=== PATIENT | female | born 1975 | race Two or more races ===

== ENCOUNTER 2024-01-04 22:31 | Inpatient (IN) | payer MEDICAID, OTHER ==
[~2024-01-04] VITALS: Ht 160 cm; Wt 143.1 kg
--- NOTE | 2024-01-04 22:53 | ED.PDOC ---
History of Present Illness HPI Comments 48-year-old female came to ER due to dizziness. Patient denies any medical problems. States since 8:00 p.m. she has been experiencing sudden onset dizziness, with blurring of vision. Denies any spinning sensation. States dizziness persisted now associated with anxiety, chills, neck and upper back pains. 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 Family History Family History: Reviewed,noncontributory to illness Social History Smoker: Non-Smoker Alcohol: Denies ETOH Use Drugs: Denies Drug Use Lives In: Home Constitutional: reports: chills; denies: diaphoresis, fatigue, fever, malaise, sweats, weakness, others EENTM: denies: blurred vision, double vision, ear bleeding, ear discharge, ear drainage, ear pain, ear ringing, eye pain, eye redness, hearing loss, mouth pain, mouth swelling, nasal discharge, nose bleeding, nose congestion, nose pain, photophobia, tearing, throat pain, throat swelling, voice changes, others Respiratory: denies: cough, hemoptysis, orthopnea, SOB at rest, shortness of breath, SOB with excertion, stridor, wheezing, others Cardiovascular: denies: chest pain, dizzy spells, diaphoresis, Dyspnea on exertion, edema, irregular heart beat, left arm pain, lightheadedness, palpitations, PND, syncope, others Gastrointestinal: denies: abdomen distended, abdominal pain, blood streaked bowels, constipated, diarrhea, dysphagia, difficulty swallowing, hematemesis, melena, nausea, poor appetite, poor fluid intake, rectal bleeding, rectal pain, vomiting, others Genitourinary: denies: abnormal vagina bleeding, burning, dyspareunia, dysuria, flank pain, frequency, hematuria, incontinence, pain, , vagina discharg e, urgency, others Neurological: reports: dizziness; denies: fainting, headache, left sided numbness, left sided weakness, numbness, paresthesia, pre-existing deficit, right sided numbness, right sided weakness, seizure, speech problems, tingling, tremors, weakness, others Musculoskeletal: reports: back pain, neck pain; denies: gout, joint pain, joint swelling, muscle pain, muscle stiffness, others Integumetry: denies: bruises, change in color, change in hair/nails, dryness, laceration, lesions, lumps, rash, wounds, others Allergic/Immunocompromised: denies: Difficulty Healing, Frequent Infections, Hives, Itching, others Hematologic/Lymphatic: denies: anemia, blood clots, easy bleeding, easy bruising, swollen glands, others Endocrine: denies: excessive hunger, excessive sweating, excessive thirst, excessive urination, flushing, intolerance to cold, intolerance to heat, unexplained weight gain, unexplained weight loss, others Psychiatric: reports: anxiety; denies: bipolar disorder, depression, hopeless, panic disorder, schizophrenia, sleepless, suicidal, others Physical Exam General Appearance: No Apparent Distress, Normal HEENT: Normal ENT Inspection, Pharynx Normal, TMs Normal Neck: Full Range of Motion, Non-Tender, Normal, Normal Inspection Respiratory: Chest Non-Tender, Lungs Clear, No Accessory Muscle Use, No Respiratory Distress, Normal Breath Sounds Cardiovascular: No Edema, No JVD, No Murmur, No Gallop, Normal Peripheral Pulses, Regular Rate/Rhythm Breast Exam: Deferred Gastrointestinal: No Organomegaly, Non Tender, No Pulsatile Mass, Normal Bowel Sounds, Soft Genitalia: Deferred Pelvic: Deferred Rectal: Deferred Extremities: No calf tenderness, Normal capillary refill, Normal inspection, Normal range of motion, Non-tender, No pedal edema Musculoskeletal : Apperance: Normal Neurologic: 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 Was a procedure done?: No Differential Dx Considerations may include: Anemia, electrolyte imbalance, vertigo X-Ray, Labs, Meds, VS Vital Signs Date Time Temp Pulse Resp B/P (MAP) Pulse Ox O2 Delivery O2 Flow Rate FiO2 01/05/24 00:05 91 17 97 Room Air* 0 21 01/05/24 00:00 98.8 91 17 127/77 (94) 97 98.8 01/04/24 23:56 94 19 134/84 (101) 98 01/04/24 22:48 107 01/04/24 22:39 98.3 110 18 163/74 (103) 99 Lab Test 01/05/24 00:32 01/04/24 23:48 01/04/24 22:43 Range/Units Troponin I High Sensitivity < 3 L < 3 L </=34 ng/L White Blood Count 11.5 H 4.4-10.8 10^3/uL Red Blood Count 4.48 4.0-5.20 10^6/uL Hemoglobin 14.6 12.2-16.2 g/dL Hematocrit 43.7 36.0-46.0 % Mean Corpuscular Volume 97.7 80.0-100.0 fL Mean Corpuscular Hemoglobin 32.7 H 28.0-32.0 pg Mean Corpuscular Hemoglobin Concent 33.4 32.0-36.0 g/dL Red Cell Distribution Width 13.1 11.8-14.3 % Platelet Count 236 140-450 10^3/uL Mean Platelet Volume 7.9 6.9-10.8 fL Neutrophils (%) (Auto) 80.4 H 37.0-80.0 % Lymphocytes (%) (Auto) 15.0 10.0-50.0 % Monocytes (%) (Auto) 3.7 0.0-12.0 % Eosinophils (%) (Auto) 0.7 0.0-7.0 % Basophils (%) (Auto) 0.2 0.0-2.0 % Neutrophils # (Auto) 9.2 H 1.6-8.6 10 ^3/uL Lymphocytes # (Auto) 1.7 0.4-5.4 10 ^3/uL Monocytes # (Auto) 0.4 0-1.3 10 ^3/uL Eosinophils # (Auto) 0.1 0-0.8 10 ^3/uL Basophils # (Auto) 0 0-0.2 10 ^3/uL Nucleated Red Blood Cells 0.1 % Sodium Level 135 L 136-145 mmol/L Potassium Level 4.1 3.5-5.1 mmol/L Chloride Level 105 98-107 mmol/L Carbon Dioxide Level 28 20-31 mmol/L Anion Gap 2 L 5-15 Blood Urea Nitrogen 9 9-23 mg/dL Creatinine 0.64 0.550-1.02 mg/dL Glomerular Filtration Rate Calc 110 >90 mL/min BUN/Creatinine Ratio 14.1 10.0-20.0 Serum Glucose 141 H 74-106 mg/dL Calcium Level 10.1 8.7-10.4 mg/dL POC Glucose 133 H 70-106 mg/dl XY CHEST TWO VIEWS ROUTINE FINDINGS: Lines and Tubes: None Lungs: No focal consolidation. Pleura: No effusion. No pneumothorax. Cardiomediastinal contours: Unremarkable Bones: No acute osseous abnormality. IMPRESSION: No acute cardiopulmonary disease. EXAM: CT HEAD WITHOUT CONTRAST FINDINGS: There is no evidence of acute intracranial hemorrhage, extra-axial collection, mass effect, midline shift, herniation or hydrocephalus. The ventricles, sulci and cisterns are age appropriate. The mckenna-white differentiation is intact. Patchy periventricular and subcortical white matter hypoattenuation is nonspecific but may be related to small vessel ischemic disease. The visualized paranasal sinuses and mastoid air cells are clear. The surrounding soft tissues and osseous structures are unremarkable. IMPRESSION: No acute intracranial abnormality. Time of 1ST Reevaluation: 22:50 Reevaluation 1ST: Unchanged Patient Education/Counseling: Diagnosis, Treatment Family Education/Counseling: No Family Present Departure 1 Departure Time of Disposition: 01:51 (Patient presented with worsening dizziness today and should be admitted. Data: 1. I ordered and reviewed the result of at least 3 labs including a CBC, BMP, and troponin. 2. I independently interpreted the following tests: EKG which shows a normal sinus _ and a chest x-ray which shows benign chest and a CT head which shows benign had.Risk:This patient has a high risk of morbidity due to further diagnostic testing or treatment and may suffer from an acute cardiac, neurologic, or infectious disorder. Rationale: Patient should be admitted to the hospital for further management.) Impression: Primary Impression: Dizziness Disposition: 09 ADMITTED INPATIENT Admit to: Med Surg Condition: Serious Critical Care Note Critical Care Time?: No Stability Stability form required: No Heart Score Heart Score: Heart Score Response (Comments) Value History N/A 0 EKG N/A 0 Age N/A 0 Risk Factors N/A 0 Troponin N/A 0 Total 0 I personally scribed for CONNIE LYNN MD ([email or web address]) on 01/04/24 at 22:53. Electronically submitted by Ismael Stubbs ([facility]). I personally scribed for CONNIE LYNN MD ([facility]) on 01/04/24 at 23:27. Electronically submitted by Ismael Stubbs ([facility]). I personally scribed for CONNIE LYNN MD ([facility]) on 01/04/24 at 23:28. Electronically submitted by Ismael Stubbs ([facility]). CONNIE LYNN MD Jan 04, 2024 22:53
--- NOTE | 2024-01-04 23:16 | DVH ---
XY CHEST TWO VIEWS ROUTINE CLINICAL HISTORY: near syncope COMPARISON: None TECHNIQUE: Frontal and lateral view of the chest was obtained FINDINGS: Lines and Tubes: None Lungs: No focal consolidation. Pleura: No effusion. No pneumothorax. Cardiomediastinal contours: Unremarkable Bones: No acute osseous abnormality. IMPRESSION: No acute cardiopulmonary disease.
--- NOTE | 2024-01-04 23:22 | DVH ---
EXAM: CT HEAD WITHOUT CONTRAST INDICATION: near syncope TECHNIQUE: CT of the head without intravenous contrast. Radiation Dose : 1. Head: CT Dose: CTDI volume is 61 mGy. Dose-length product is 1209 mGy*cm The dose indicators for CT are the volume Computed Tomography (CT) Dose Index (CTDIvol) and the Dose Length Product (DLP), and are measured in units of mGy and mGy-cm, respectively. These indicators are not patient dose, but values generated from the CT scanner acquisition factors. The report includes radiation exposure data for exposures received during this examination. COMPARISON: None FINDINGS: There is no evidence of acute intracranial hemorrhage, extra-axial collection, mass effect, midline s hift, herniation or hydrocephalus. The ventricles, sulci and cisterns are age appropriate. The mckenna-white differentiation is intact. Patchy periventricular and subcortical white matter hypoattenuation is nonspecific but may be related to small vessel ischemic disease. The visualized paranasal sinuses and mastoid air cells are clear. The surrounding soft tissues and osseous structures are unremarkable. IMPRESSION: No acute intracranial abnormality. Radiation optimization: All CT scans at this facility use at least one of these dose optimization armani hniques: automated exposure control mA and/or kV adjustment per patient size (includes targeted exam s where dose is matched to clinical indication) or iterative reconstruction.
[2024-01-04 23:58] LABS: Basophils # (auto) 0 10 ^3/uL (0-0.2); Basophils % (auto) 0.2 % (0.0-2.0); Eosinophils # (auto) 0.1 10 ^3/uL (0-0.8); Eosinophils % (auto) 0.7 % (0.0-7.0); Hematocrit 43.7 % (36.0-46.0); Hemoglobin 14.6 g/dL (12.2-16.2); Lymphocytes # (auto) 1.7 10 ^3/uL (0.4-5.4); Mean Corpuscular Hemoglobin 32.7 pg (28.0-32.0); Mean Corpuscular Hgb Conc. 33.4 g/dL (32.0-36.0); Mean Corpuscular Volume 97.7 fL (80.0-100.0); Monocytes # (auto) 0.4 10 ^3/uL (0-1.3); Monocytes % (auto) 3.7 % (0.0-12.0); Neutrophils # (auto) 9.2 10 ^3/uL (1.6-8.6); Neutrophils % (auto) 80.4 % (37.0-80.0); Nucleated Red Blood Cells % 0.1 %; Platelet Count (auto) 236 10^3/uL (140-450); Red Blood Cells 4.48 10^6/uL (4.0-5.20); Red Cell Distribution Width 13.1 % (11.8-14.3); White Blood Cell 11.5 10^3/uL (4.4-10.8)
[2024-01-05 00:05] VITALS: PULSE 91; RESP 17; O2SAT 97
[2024-01-05 00:21] LABS: Chloride 105 mmol/L (98-107); Potassium 4.1 mmol/L (3.5-5.1); Sodium 135 mmol/L (136-145)
[2024-01-05 00:22] LABS: Anion Gap 2 (5-15); Calcium 10.1 mg/dL (8.7-10.4); Carbon Dioxide 28 mmol/L (20-31)
[2024-01-05 00:27] LABS: BUN/Creatinine Ratio 14.1 (10.0-20.0); Blood Urea Nitrogen 9 mg/dL (9-23); Glucose 141 mg/dL (74-106)
[2024-01-05 02:30] LABS: Urine Bacteria None Seen /hpf (None Seen)
[2024-01-05] MEDS ORDERED: DOCUSATE SOD 100 MG CAP PO PRN (03:00)
[2024-01-05] MEDS ORDERED: HYDROcodone-ACET 5/325MG TAB PO PRN (03:00)
[2024-01-05] MEDS ORDERED: ACETAMINOPHEN 325 MG TAB PO PRN (03:00)
[2024-01-05] MEDS ORDERED: ONDANSETRON HCL 4 MG/2 ML VIAL IV PRN (03:00)
[2024-01-05 03:04] LABS: Urine Blood Negative /uL (Negative); Urine Budding Yeast OCCASIONAL /hpf (None Seen); Urine Clarity Turbid (Clear); Urine Color Light-Yellow (Yellow); Urine Mucus FEW (None Seen); Urine Protein, UAD Negative (Negative); Urine Specific Gravity 1.014 (1.001-1.035); Urine Urobilinogen Normal (Negative); Urine WBC <1 /hpf (0 - 5); Urine pH 5.5 (5.0-9.0)
--- NOTE | 2024-01-05 03:57 | DVHHP2 ---
History of Present Illness Reason for Visit: Dizziness and giddiness History of Present Illness The patient is a 48-year-old female who denies past medical history presented to [facility] ED with complaint of dizziness. Patient reports symptoms progressively get worse with blurry vision, anxiety, chills, neck and upper back pain, getting worse that prompted this visit. Patient was seen and evaluated in the ED, laboratory data shows WBC 11.5, platelets 236, sodium 135, potassium 4.1, BUN 9, creatinine 0.64, glucose 141, troponin 3, calcium 10.1, blood pres sure 127/77, heart rate 94, temperature 98.8 F, O2 saturation 97% on room air. Head CT showed no acute intracranial abnormality. Please see medication orders section in the computer. On my assessment, patient denies chest pain, no headache, no diaphoresis, shortness of breath, no nausea, no vomiting, no fever, no chills. Patient was admitted further evaluation and medical management. Past Medical History Denies past medical history Past Surgical History Appendectomy Family History Reviewed, noncontributory to the management of this case. Past Social History The patient lives at home, denies smoking, alcohol or illicit drugs abuse. Review of Systems Constitutional: No: Fever, Chills, Sweats, Weakness, Malaise, Other Eyes: No: Pain, Vision change, Conjunctivae inflammation, Eyelid inflammation, Other, Redness ENT: No: Ear pain, Ear discharge, Nose pain, Nose discharge, Nose congestion, Mouth pain, Mouth swelling, Throat pain, Throat swelling, Other Respiratory: No: Cough, Dry, Shortness of breath, SOB with excertion, Wheezing, Hemoptysis, Pleuritic Pain, Sputum, Wheezing, Other Cardiovascular: No: Chest Pain, Palpitations, Orthopnea, Paroxysmal Noc. Dyspnea, Edema, Lt Headedness, Other Gastrointestinal: No: Nausea, Vomiting, Abdominal Pain, Diarrhea, Constipation, Melena, Hematochezia, Other Genitourinary: No Dysuria, No Frequency, No Incontinence, No Hematuria, No Retention, No Other Musculoskeletal: No: other, neck pain, shoulder pain, arm pain, back pain, hand pain, leg pain, foot pain Skin: No: Rash, Lesions, Jaundice, Bruising, Other Neurological: Other (Dizziness); No: Weakness, Numbness, Incoordination, Change in speech, Confusion, Seizures Allergies: Coded Allergies: NO KNOWN ALLERGIES (Unverified , 01/04/24) Medications Current Medications Medications Dose Ordered Sig/Amaris Route Start Time Stop Time Status Last Admin Dose Admin Sodium Chloride 1,000 ml @ 60 mls/hr [id number] IV 01/05/24 03:00 Acetaminophen/ Hydrocodone Bitart 1 tab Q4HP PRN PO 01/05/24 03:00 Ondansetron HCl 4 mg Q4HP PRN IV 01/05/24 03:00 Docusate Sodium 100 mg BIDPRN PRN PO 01/05/24 03:00 Acetaminophen 650 mg Q6HP PRN PO 01/05/24 03:00 Meclizine HCl 25 mg Q8HPRN PRN PO 01/05/24 04:00 Exam Vital Signs Vital Signs Date Time Temp Pulse Resp B/P (MAP) Pulse Ox O2 Delivery O2 Flow Rate FiO2 01/05/24 03:00 69 16 90/62 (71) 98 01/05/24 00:05 Room Air* 0 21 01/05/24 00:00 98.8 98.8 General Appearance: Alert, Oriented X3, Cooperative, No acute distress HEENT: Atraumatic, PERRLA, EOMI, Mucous membr. moist/pink Respiratory: Clear to auscultation, Normal air movement Cardiovascular: Regular rate, Normal S1, Normal S2, No murmurs Abdominal: Normal bowel sounds, Soft, No tenderness, No hepatospenomegaly, No masses Extremities: No clubbing, No cyanosis, No edema, Normal pulses, No tenderness/swelling Skin: No rashes, No breakdown, No significant lesion Neuro: Normal gait, Normal speech, Strength at 5/5 X4 ext, Normal tone, Sensation intact, Cranial nerves 3-12 NL, Reflexes 2+ Psych/Mental Status: Mental status NL, Mood NL Labs/Xrays Labs Test 01/05/24 02:30 01/05/24 00:32 01/04/24 23:48 01/04/24 22:43 Range/Units Urine Color Light-yellow Yellow Urine Clarity Turbid H Clear Urine pH 5.5 5.0-9.0 Urine Specific [place] 1.014 1.001-1.035 Urine Protein Negative Negative Urine Ketones Negative Negative Urine Blood Negative Negative /uL Urine Nitrite Negative Negative Urine Bilirubin Negative Negative Urine Urobilinogen Normal Negative mg/dL Urine Leukocyte Esterase 2+ Negative /uL Urine RBC 2 0 - 4 /hpf Urine WBC <1 0 - 5 /hpf Urine Squamous Epithelial Cells Few <5 /hpf Urine Bacteria None seen None Seen /hpf Urine Mucus Few None Seen Urine Yeast (Budding) Occasional None Seen /hpf Urine Glucose Normal Normal mg/dL Troponin I High Sensitivity < 3 L </=34 ng/L White Blood Count 11.5 H 4.4-10.8 10^3/uL Red Blood Count 4.48 4.0-5.20 10^6/uL Hemoglobin 14.6 12.2-16.2 g/dL Hematocrit 43.7 36.0-46.0 % Mean Corpuscular Volume 97.7 80.0-100.0 fL Mean Corpuscular Hemoglobin 32.7 H 28.0-32.0 pg Mean Corpuscular Hemoglobin Concent 33.4 32.0-36.0 g/dL Red Cell Distribution Width 13.1 11.8-14.3 % Platelet Count 236 140-450 10^3/uL Mean Platelet Volume 7.9 6.9-10.8 fL Neutrophils (%) (Auto) 80.4 H 37.0-80.0 % Lymphocytes (%) (Auto) 15.0 10.0-50.0 % Monocytes (%) (Auto) 3.7 0.0-12.0 % Eosinophils (%) (Auto) 0.7 0.0-7.0 % Basophils (%) (Auto) 0.2 0.0-2.0 % Neutrophils # (Auto) 9.2 H 1.6-8.6 10 ^3/uL Lymphocytes # (Auto) 1.7 0.4-5.4 10 ^3/uL Monocytes # (Auto) 0.4 0-1.3 10 ^3/uL Eosinophils # (Auto) 0.1 0-0.8 10 ^3/uL Basophils # (Auto) 0 0-0.2 10 ^3/uL Nucleated Red Blood Cells 0.1 % Sodium Level 135 L 136-145 mmol/L Potassium Level 4.1 3.5-5.1 mmol/L Chloride Level 105 98-107 mmol/L Carbon Dioxide Level 28 20-31 mmol/L Anion Gap 2 L 5-15 Blood Urea Nitrogen 9 9-23 mg/dL Creatinine 0.64 0.550-1.02 mg/dL Glomerular Filtration Rate Calc 110 >90 mL/min BUN/Creatinine Ratio 14.1 10.0-20.0 Serum Glucose 141 H 74-106 mg/dL Calcium Level 10.1 8.7-10.4 mg/dL POC Glucose 133 H 70-106 mg/dl PATIENT: ADRIENNE JENNINGSCT: [id number] UNIT: [id number] : 1975 LOC: ER ROOM / BED: / AGE / SEX: 48 / F ADM STATUS: REG ER SERVICE [id number] ORDERING PHYSICIAN: CONNIE LYNN MD PROCEDURE(s): HWOCT - HEAD WITHOUT CONTRAST REASON: near syncope ORDER NUMBER(s): [id number], ACCESSION NUMBER(s): [id number] EXAM: CT HEAD WITHOUT CONTRAST INDICATION: near syncope TECHNIQUE: CT of the head without intravenous contrast. Radiation Dose : 1. Head: CT Dose: CTDI volume is 61 mGy. Dose-length product is 1209 mGy*cm The dose indicators for CT are the volume Computed Tomography (CT) Dose Index CTDIvol) and the Dose Length Product (DLP), and are measured in units of mGy and mGy-cm, respectively. These indicators are not patient dose, but values generate d from the CT scanner acquisition factors. The report includes radiation exposure data for exposures received during this examination. COMPARISON: None FINDINGS: There is no evidence of acute intracranial hemorrhage, extra-axial collection, mass effect, midline shift, herniation or hydrocephalus. The ventricles, sulci and cisterns are age appropriate. The mckenna-white differentiation is intact. Patchy periventricular and subcortical white matter hypoattenuation is nonspecific but may be related to small vessel ischemic disease. The visualized paranasal sinuses and mastoid air cells are clear. The surrounding soft tissues and osseous structures are unremarkable. IMPRESSION: No acute intracranial abnormality. ORDERING PHYSICIAN: CONNIE LYNN MD PROCEDURE(s): CXR2 - CHEST TWO VIEWS ROUTINE REASON: near syncope ORDER NUMBER(s): [id number], ACCESSION NUMBER(s): [id number] XY CHEST TWO VIEWS ROUTINE CLINICAL HISTORY: near syncope COMPARISON: None TECHNIQUE: Frontal and lateral view of the chest was obtained FINDINGS: Lines and Tubes: None Lungs: No focal consolidation. Pleura: No effusion. No pneumothorax. Cardiomediastinal contours: Unremarkable Bones: No acute osseous abnormality. IMPRESSION: No acute cardiopulmonary disease. Assessment/Plan Assessment/Plan Dizziness and giddiness Generalized weakness Plan 1. Admit to telemetry unit 2. Breathing treatment 3. Pain control management 4. Management of fluids and electrolytes 5. Consultation for hospitalist 6. Diagnostic tests head CT 7. DVT prophylaxis on SCDs 8. Repeat labs CBC, CMP in a.m. 9. Continue with current medical management 10. Treatment plan discussed with patient and RN. Patient verbalized understanding. Plan discussed with: Patient, Other (RN) My Orders Orders - MICHAEL TRINIDAD DNP Procedure Category Date Status Time Complete Blood Count LAB 01/05/24 Logged 04:00 Comprehensive LAB 01/05/24 Logged Metabolic Panel 04:00 Hemoglobin A1c LAB 01/05/24 Logged 04:00 Allergies ROSS 01/05/24 In Process 02:56 Code Status CODE 01/05/24 Transmitted 02:56 Sodium Chloride 0.9% PHA 01/05/24 In Process 03:00 Oxygen Per Hour RT 01/05/24 Transmitted 02:56 Hydrocodone-Acet PHA 01/05/24 In Process 5/325mg Tab ([place] 03:00 Ondansetron Hcl PHA 01/05/24 In Process (Zofran) 03:00 Docusate Sodium PHA 01/05/24 In Process Capsule (Colace 03:00 Complete Blood Count LAB 01/06/24 Verified 04:00 Comprehensive LAB 01/06/24 Verified Metabolic Panel 04:00 Cardiac DIET 01/05/24 Transmitted Diet-2gna,Lofat,Lochol Breakfast Condition: Serious ROSS 01/05/24 In Process 02:56 Acetaminophen Tablet PHA 01/05/24 In Process (Tylenol Tablet) 03:00 Bedrest With Bathroom ROSS 01/05/24 In Process Privileg 02:56 Sequential ROSS 01/05/24 In Process Compression Device Meclizine Tablet PHA 01/05/24 In Process (Antivert Tablet) 04:00 Admit ADMIT 01/05/24 Transmitted 03:53 Nitroglycerin PHA 01/05/24 Transmitted Sublingual (Ntrostat 04:00 Morphine Sulfate PHA 01/05/24 Transmitted Injection 04:00 Notify Of Changes ROSS 01/05/24 Transmitted From Base 03:53 Web Marketing Specialist For [facility] 01/05/24 Transmitted 24 Hours 03:53 Emergency Dysrhythmia [facility] 01/05/24 Transmitted Protocol 03:53 Rhythm Strips Once [facility] 01/05/24 Transmitted Every Shift 03:53 Oxygen By Nasal RT 01/05/24 Transmitted Cannula 03:53 Problem List: (1) Dizziness and giddiness (2) Generalized weakness Date of Service: Jan 05, 2024 Billing Provider: MICHAEL TRINIDAD DNP Common Visit Codes: [id number] INP/OBS CARE (HIGH) MICHAEL TRINIDAD DNP Jan 05, 2024 03:57
[2024-01-05] MEDS ORDERED: MORPHINE SULFATE INJ 2 MG/ml SYRG IV PRN (04:00)
[2024-01-05] MEDS ORDERED: NITROGLYCERIN 0.4 MG SL TAB SL PRN (04:00)
[2024-01-05] MEDS: SODIUM CHLORIDE 0.9% 1,000 ML IV SCH (04:10)
[2024-01-05 05:55] LABS: Basophils # (auto) 0 10 ^3/uL (0-0.2); Basophils % (auto) 0.2 % (0.0-2.0); Eosinophils # (auto) 0.1 10 ^3/uL (0-0.8); Eosinophils % (auto) 0.9 % (0.0-7.0); Hemoglobin 13.8 g/dL (12.2-16.2); Lymphocytes # (auto) 2.3 10 ^3/uL (0.4-5.4); Lymphocytes % (auto) 23.6 % (10.0-50.0); Mean Corpuscular Hemoglobin 33.3 pg (28.0-32.0); Mean Corpuscular Hgb Conc. 34.6 g/dL (32.0-36.0); Mean Corpuscular Volume 96.1 fL (80.0-100.0); Monocytes # (auto) 0.5 10 ^3/uL (0-1.3); Monocytes % (auto) 5.7 % (0.0-12.0); Neutrophils # (auto) 6.7 10 ^3/uL (1.6-8.6); Neutrophils % (auto) 69.6 % (37.0-80.0); Platelet Count (auto) 219 10^3/uL (140-450); Red Blood Cells 4.16 10^6/uL (4.0-5.20); White Blood Cell 9.6 10^3/uL (4.4-10.8)
[2024-01-05 06:20] LABS: Alanine Aminotransferase 25 U/L (7-40); Albumin 4.4 g/dL (3.2-4.8); Alkaline Phosphatase 104 U/L (46-116); Anion Gap 6 (5-15); Aspartate Aminotransferase 9 U/L (13-40); BUN/Creatinine Ratio 15.5 (10.0-20.0); Bilirubin, Total 0.8 mg/dL (0.2-1.0); Blood Urea Nitrogen 9 mg/dL (9-23); Calcium 9.4 mg/dL (8.7-10.4); Carbon Dioxide 28 mmol/L (20-31); Chloride 104 mmol/L (98-107); Glucose 120 mg/dL (74-106); Potassium 4.1 mmol/L (3.5-5.1); Sodium 138 mmol/L (136-145); Total Protein 7.8 g/dL (5.7-8.2)
[2024-01-05 07:24] VITALS: PULSE 84; RESP 13; O2SAT 97
--- NOTE | 2024-01-05 12:46 | DVHPN2 ---
Reviewed: Care Plan, H&P, Labs, Medications, Previous Orders, Radiology Changes from previous H/P or p: No Changes Eyes: No Pain, No Vision change, No Conjunctivae inflammation, No Eyelid inflammation, No Other, No Redness ENT: No Ear pain, No Ear discharge, No Nose pain, No Nose discharge, No Nose congestion, No Mouth pain, No Mouth swelling, No Throat pain, No Throat swelling, No Other Cardiovascular: No Chest Pain, No Palpitations, No Orthopnea, No Paroxysmal Noc. Dyspnea, No Edema, No Lt Headedness, No Other Respiratory: No Cough, No Dry, No Shortness of breath, No SOB with excertion, No Wheezing, No Hemoptysis, No Pleuritic Pain, No Sputum, No Other Gastrointestinal: No Nausea, No Vomiting, No Abdominal Pain, No Diarrhea, No Constipation, No Melena, No Hematochezia, No Other Genitourinary: No Dysuria, No Frequency, No Incontinence, No Hematuria, No Retention, No Other Musculoskeletal: No other, No neck pain, No shoulder pain, No arm pain, No back pain, No hand pain, No leg pain, No foot pain Skin: No Rash, No Lesions, No Jaundice, No Bruising, No Other Objective Vitals Vital Signs Date Time Temp Pulse Resp B/P (MAP) Pulse Ox O2 Delivery O2 Flow Rate FiO2 01/05/24 12:00 66 17 104/57 (73) 97 01/05/24 07:24 Room Air* 0 21 01/05/24 07:24 98.2 98.2 Intake/Output Intake and Output 01/05/24 07:00 Intake Total 120 ml Balance 120 ml Intake IV Total 120 ml Medications Current Medications Medications Dose Ordered Sig/Amaris Route Start Time Stop Time Status Last Admin Dose Admin Sodium Chloride 1,000 ml @ 60 mls/hr [id number] IV 01/05/24 03:00 01/05/24 04:10 60 MLS/HR Acetaminophen/ Hydrocodone Bitart 1 tab Q4HP PRN PO 01/05/24 03:00 Ondansetron HCl 4 mg Q4HP PRN IV 01/05/24 03:00 Docusate Sodium 100 mg BIDPRN PRN PO 01/05/24 03:00 Acetaminophen 650 mg Q6HP PRN PO 01/05/24 03:00 Meclizine HCl 25 mg Q8HPRN PRN PO 01/05/24 04:00 Nitroglycerin 0.4 mg Q5MINP PRN SL 01/05/24 04:00 Morphine Sulfate 2 mg Q30M PRN IV 01/05/24 04:00 Laboratory Results Laboratory Tests 01/05/24 05:15 Chemistry Test 01/04/24 23:48 01/05/24 05:15 Calcium Level 10.1 mg/dL (8.7-10.4) 9.4 mg/dL (8.7-10.4) Albumin 4.4 g/dL (3.2-4.8) Total Protein 7.8 g/dL (5.7-8.2) LFT Test 01/05/24 05:15 Alanine Aminotransferase (ALT) 25 U/L (7-40) Alkaline Phosphatase 104 U/L (46-116) Aspartate Amino Transferase (AST) 9 U/L (13-40) L Total Bilirubin 0.8 mg/dL (0.2-1.0) HgA1c, TSH Test 01/05/24 05:15 Hemoglobin A1c 6.3 % A1C (<5.7) H Urinalysis Test 01/05/24 02:30 Urine Color Light-yellow (Yellow) Urine Clarity Turbid (Clear) H Urine pH 5.5 (5.0-9.0) Urine Specific [place] 1.014 (1.001-1.035) Urine Protein Negative (Negative) Urine Ketones Negative (Negative) Urine Blood Negative /uL (Negative) Urine Nitrite Negative (Negative) Urine Bilirubin Negative (Negative) Urine Urobilinogen Normal mg/dL (Negative) Urine Leukocyte Esterase 2+ /uL (Negative) Urine RBC 2 /hpf (0 - 4) Urine WBC <1 /hpf (0 - 5) Urine Squamous Epithelial Cells Few /hpf (<5) Urine Bacteria None seen /hpf (None Seen) Urine Mucus Few (None Seen) Urine Yeast (Budding) Occasional /hpf (None Urine Glucose Normal mg/dL (Normal) Labs and/or images reviewed: Labs reviewed by me, Image(s) reviewed by me Assessment/Plan Assessment/Plan Dizziness unknown etiology: Chest x-ray negative CT head negative: Antivert Acute dehydration: IV fluids All labs are normal, urine analysis normal Will check urine drug screen and beta HCG Time spent 35 minutes Plan discussed with: Patient My Orders Orders - JUAN HASSAN MD Procedure Category Date Status Time Drug Screen LAB 01/05/24 Transmitted 12:43 Beta Hcg, Quantitative LAB 01/05/24 Transmitted 12:43 Date of Service: Jan 05, 2024 Billing Provider: JUAN HASSAN MD Common Visit Codes: [id number] INP/OBS CARE(HIGH) JUAN HASSAN MD Jan 05, 2024 12:46
[2024-01-05 12:54] VITALS: PULSE 88; RESP 19; O2SAT 96
[2024-01-05 14:04] LABS: Amphetamine Screen, Urine Neg (NEGATIVE); Barbiturate Scree,Urine Neg (NEGATIVE); Benzodiazephine Screen, Urine Neg (NEGATIVE); Cocaine Screen, Urine Neg (NEGATIVE)
[2024-01-05 14:05] LABS: Cannabinoid Screen, Urine Neg (NEGATIVE); Opiate Scree,Urine Neg (NEGATIVE); Phencyclidine Screen, Urine Neg (NEGATIVE)
[2024-01-05 19:33] VITALS: PULSE 89; RESP 16; O2SAT 98
[2024-01-05 20:00] VITALS: PULSE 85
[2024-01-05 22:27] VITALS: BP 125/78; PULSE 71; RESP 18; TEMP 97.7; O2SAT 96
[2024-01-06 01:00] VITALS: BP 111/68; PULSE 64; RESP 18; TEMP 97.7; O2SAT 97
[2024-01-06 05:00] VITALS: BP 103/63; PULSE 64; RESP 18; TEMP 97.7; O2SAT 95
[2024-01-06 07:10] LABS: Basophils # (auto) 0 10 ^3/uL (0-0.2); Basophils % (auto) 0.2 % (0.0-2.0); Eosinophils # (auto) 0.2 10 ^3/uL (0-0.8); Eosinophils % (auto) 1.8 % (0.0-7.0); Hematocrit 37.9 % (36.0-46.0); Hemoglobin 12.7 g/dL (12.2-16.2); Lymphocytes # (auto) 2.4 10 ^3/uL (0.4-5.4); Lymphocytes % (auto) 28.2 % (10.0-50.0); Mean Corpuscular Hemoglobin 32.7 pg (28.0-32.0); Mean Corpuscular Hgb Conc. 33.6 g/dL (32.0-36.0); Mean Corpuscular Volume 97.5 fL (80.0-100.0); Monocytes # (auto) 0.5 10 ^3/uL (0-1.3); Monocytes % (auto) 6.1 % (0.0-12.0); Neutrophils # (auto) 5.4 10 ^3/uL (1.6-8.6); Neutrophils % (auto) 63.7 % (37.0-80.0); Platelet Count (auto) 208 10^3/uL (140-450); Red Blood Cells 3.89 10^6/uL (4.0-5.20); Red Cell Distribution Width 13.1 % (11.8-14.3); White Blood Cell 8.4 10^3/uL (4.4-10.8)
[2024-01-06 07:29] LABS: Alanine Aminotransferase 20 U/L (7-40); Alkaline Phosphatase 82 U/L (46-116); Anion Gap 5 (5-15); BUN/Creatinine Ratio 18.9 (10.0-20.0); Blood Urea Nitrogen 10 mg/dL (9-23); Calcium 9.2 mg/dL (8.7-10.4); Carbon Dioxide 26 mmol/L (20-31); Chloride 107 mmol/L (98-107); Glucose 103 mg/dL (74-106); Potassium 3.9 mmol/L (3.5-5.1); Sodium 138 mmol/L (136-145)
[2024-01-06 07:30] LABS: Albumin 3.9 g/dL (3.2-4.8); Aspartate Aminotransferase < 8 U/L (13-40)
[2024-01-06 08:15] VITALS: PULSE 80; RESP 17; O2SAT 99
[2024-01-06 09:38] VITALS: BP 133/77; PULSE 80; RESP 17; TEMP 98.1; O2SAT 99
[2024-01-06] MEDS: MECLIZINE HCL 25 MG TAB PO PRN (09:50)
[2024-01-06] MEDS ORDERED: MECL25CH85 PO (10:21)
--- NOTE | 2024-01-06 10:23 | DVHPN2 ---
Reviewed: Care Plan, H&P, Labs, Medications, Previous Orders, Radiology Changes from previous H/P or p: No Changes Eyes: No Pain, No Vision change, No Conjunctivae inflammation, No Eyelid inflammation, No Other, No Redness ENT: No Ear pain, No Ear discharge, No Nose pain, No Nose discharge, No Nose congestion, No Mouth pain, No Mouth swelling, No Throat pain, No Throat swelling, No Other Cardiovascular: No Chest Pain, No Palpitations, No Orthopnea, No Paroxysmal Noc. Dyspnea, No Edema, No Lt Headedness, No Other Respiratory: No Cough, No Dry, No Shortness of breath, No SOB with excertion, No Wheezing, No Hemoptysis, No Pleuritic Pain, No Sputum, No Other Gastrointestinal: No Nausea, No Vomiting, No Abdominal Pain, No Diarrhea, No Constipation, No Melena, No Hematochezia, No Other Genitourinary: No Dysuria, No Frequency, No Incontinence, No Hematuria, No Retention, No Other Musculoskeletal: No other, No neck pain, No shoulder pain, No arm pain, No back pain, No hand pain, No leg pain, No foot pain Skin: No Rash, No Lesions, No Jaundice, No Bruising, No Other Objective Vitals Vital Signs Date Time Temp Pulse Resp B/P (MAP) Pulse Ox O2 Delivery O2 Flow Rate FiO2 01/06/24 09:38 98.1 80 17 133/77 (95) 99 98.1 01/05/24 22:30 Room Air* 0 21 Intake/Output Intake and Output 01/06/24 07:00 Intake Total 740 ml Balance 740 ml Intake IV Total 740 ml Medications Current Medications Medications Dose Ordered Sig/Amaris Route Start Time Stop Time Status Last Admin Dose Admin Sodium Chloride 1,000 ml @ 60 mls/hr [id number] IV 01/05/24 03:00 01/05/24 20:30 60 MLS/HR Acetaminophen/ Hydrocodone Bitart 1 tab Q4HP PRN PO 01/05/24 03:00 Ondansetron HCl 4 mg Q4HP PRN IV 01/05/24 03:00 Docusate Sodium 100 mg BIDPRN PRN PO 01/05/24 03:00 Acetaminophen 650 mg Q6HP PRN PO 01/05/24 03:00 Meclizine HCl 25 mg Q8HPRN PRN PO 01/05/24 04:00 01/06/24 09:50 25 MG Nitroglycerin 0.4 mg Q5MINP PRN SL 01/05/24 04:00 Morphine Sulfate 2 mg Q30M PRN IV 01/05/24 04:00 Laboratory Results Laboratory Tests 01/06/24 06:23 Chemistry Test 01/06/24 06:23 Albumin 3.9 g/dL (3.2-4.8) Calcium Level 9.2 mg/dL (8.7-10.4) Total Protein 7.0 g/dL (5.7-8.2) LFT Test 01/06/24 06:23 Alanine Aminotransferase (ALT) 20 U/L (7-40) Alkaline Phosphatase 82 U/L (46-116) Aspartate Amino Transferase (AST) < 8 U/L (13-40) L Total Bilirubin 1.0 mg/dL (0.2-1.0) Urinalysis Test 01/05/24 02:30 Urine Color Light-yellow (Yellow) Urine Clarity Turbid (Clear) H Urine pH 5.5 (5.0-9.0) Urine Specific [place] 1.014 (1.001-1.035) Urine Protein Negative (Negative) Urine Ketones Negative (Negative) Urine Blood Negative /uL (Negative) Urine Nitrite Negative (Negative) Urine Bilirubin Negative (Negative) Urine Urobilinogen Normal mg/dL (Negative) Urine Leukocyte Esterase 2+ /uL (Negative) Urine RBC 2 /hpf (0 - 4) Urine WBC <1 /hpf (0 - 5) Urine Squamous Epithelial Cells Few /hpf (<5) Urine Bacteria None seen /hpf (None Seen) Urine Mucus Few (None Seen) Urine Yeast (Budding) Occasional /hpf (None Urine Glucose Normal mg/dL (Normal) Labs and/or images reviewed: Labs reviewed by me, Image(s) reviewed by me Assessment/Plan Assessment/Plan Dizziness secondary to vertigo Chest x-ray negative CT head negative: Antivert Acute dehydration: IV fluids History of vertigo All labs are normal, urine analysis normal ruled out Discharge plan discussed with the patient and the with the help of hearing impaired teacher Time spent 35 minutes Plan discussed with: Patient Date of Service: Jan 06, 2024 Billing Provider: JUAN HASSAN MD Common Visit Codes: [id number] INP/OBS CARE(HIGH) JUAN HASSAN MD Jan 06, 2024 10:23
--- NOTE | 2024-01-06 10:26 | DVHDS2 ---
Discharge Summary Date of Admission Jan 05, 2024 at 03:57 Date of Discharge: Jan 06, 2024 Admitting Diagnosis Dizziness Wounds: None Labs/Diagnostic Data: Laboratory Results Test 01/06/24 06:23 01/05/24 05:15 01/05/24 02:30 01/05/24 00:32 White Blood Count 8.4 10^3/uL (4.4-10.8) Red Blood Count 3.89 10^6/uL (4.0-5.20) Hemoglobin 12.7 g/dL (12.2-16.2) Hematocrit 37.9 % (36.0-46.0) Mean Corpuscular Volume 97.5 fL (80.0-100.0) Mean Corpuscular Hemoglobin 32.7 pg (28.0-32.0) Mean Corpuscular Hemoglobin Concent 33.6 g/dL (32.0-36.0) Red Cell Distribution Width 13.1 % (11.8-14.3) Platelet Count 208 10^3/uL (140-450) Mean Platelet Volume 8.0 fL (6.9-10.8) Neutrophils (%) (Auto) 63.7 % (37.0-80.0) Lymphocytes (%) (Auto) 28.2 % (10.0-50.0) Monocytes (%) (Auto) 6.1 % (0.0-12.0) Eosinophils (%) (Auto) 1.8 % (0.0-7.0) Basophils (%) (Auto) 0.2 % (0.0-2.0) Neutrophils # (Auto) 5.4 10 ^3/uL (1.6-8.6) Lymphocytes # (Auto) 2.4 10 ^3/uL (0.4-5.4) Monocytes # (Auto) 0.5 10 ^3/uL (0-1.3) Eosinophils # (Auto) 0.2 10 ^3/uL (0-0.8) Basophils # (Auto) 0 10 ^3/uL (0-0.2) Nucleated Red Blood Cells 0.0 % Sodium Level 138 mmol/L (136-145) Potassium Level 3.9 mmol/L (3.5-5.1) Chloride Level 107 mmol/L (98-107) Carbon Dioxide Level 26 mmol/L (20-31) Anion Gap 5 (5-15) Blood Urea Nitrogen 10 mg/dL (9-23) Creatinine 0.53 mg/dL (0.550-1.02) Glomerular Filtration Rate Calc 115 mL/min (>90) BUN/Creatinine Ratio 18.9 (10.0-20.0) Serum Glucose 103 mg/dL (74-106) Calcium Level 9.2 mg/dL (8.7-10.4) Total Bilirubin 1.0 mg/dL (0.2-1.0) Aspartate Amino Transferase (AST) < 8 U/L (13-40) Alanine Aminotransferase (ALT) 20 U/L (7-40) Alkaline Phosphatase 82 U/L (46-116) Total Protein 7.0 g/dL (5.7-8.2) Albumin 3.9 g/dL (3.2-4.8) Hemoglobin A1c 6.3 % A1C (<5.7) Beta HCG, Quantitative 0.8 mIU/mL (1.5-4.2) Urine Color Light-yellow (Yellow) Urine Clarity Turbid (Clear) Urine pH 5.5 (5.0-9.0) Urine Specific [place] 1.014 (1.001-1.035) Urine Protein Negative (Negative) Urine Ketones Negative (Negative) Urine Blood Negative /uL (Negative) Urine Nitrite Negative (Negative) Urine Bilirubin Negative (Negative) Urine Urobilinogen Normal mg/dL (Negative) Urine Leukocyte Esterase 2+ /uL (Negative) Urine RBC 2 /hpf (0 - 4) Urine WBC <1 /hpf (0 - 5) Urine Squamous Epithelial Cells Few /hpf (<5) Urine Bacteria None seen /hpf (None Seen) Urine Mucus Few (None Seen) Urine Yeast (Budding) Occasional /hpf (None Urine Glucose Normal mg/dL (Normal) Urine Opiates Screen Neg (NEGATIVE) Urine Fentanyl Screen Neg (NEGATIVE) Urine Barbiturates Screen Neg (NEGATIVE) Urine Phencyclidine Screen Neg (NEGATIVE) Urine Amphetamines Screen Neg (NEGATIVE) Urine Benzodiazepines Screen Neg (NEGATIVE) Urine Cocaine Screen Neg (NEGATIVE) Urine Cannabinoids Screen Neg (NEGATIVE) Troponin I High Sensitivity < 3 ng/L (</=34) Test 01/04/24 22:43 POC Glucose 133 mg/dl (70-106) Other Laboratory Tests 01/06/24 06:23 Brief Hx & Hospital Course: 48-year-old female with a history of vertigo came in complaining of dizziness. Patient was found to be in dehydration given IV fluids started with a Antivert chest x-ray negative CT head negative all labs were normal urinalysis negative ruled out. Patient feels better being discharged home on Antivert she will follow up with the her primary Dr and also advised to follow up with the ENT Dr discharge plan discussed with the patient and her with the help of incinerator attendant Consults/Reason for consult None Operations or Procedures CT head Condition at Discharge: Fair Final Diagnosis/Problems List Dizziness secondary to vertigo Chest x-ray negative CT head negative: Antivert Acute dehydration: IV fluids History of vertigo All labs are normal, urine analysis normal ruled out Discharge Disposition: Home Discharge Instruct/Medications Diet: Cardiac 2g Na,low cholest Activity: Light activity Follow Up/Referral: Follow up with the primary Dr and the ENT Dr Medications: Antivert Transmitted to [facility] 36 (Time taken for discharge summary 36 minutes) Discharge Statement: "Patient was advised to return to the ER or call 911 if any headaches, dizziness, shortness of breath, chest pain, abdominal pain, bleeding, fevers, or worsening of medical condition. Patient was counseled about treatment plan, medications, possible side effects, patientverbalized understanding. All questions were answered to the best of my ability. This discharge took greater then 30 minutes in planning, reviewing documentation, counseling the patient, and discussing with other team members." ASSESSMENT ASSESSMENT Hospital Course Improved Assessment Dizziness secondary to vertigo Chest x-ray negative CT head negative: Antivert Acute dehydration: IV fluids History of vertigo All labs are normal, urine analysis normal ruled out Date of Service: Jan 06, 2024 Billing Provider: JUAN HASSAN MD Common Visit Codes: [id number] INP/OBS CARE(HIGH) JUAN HASSAN MD Jan 06, 2024 10:26
[2024-01-06 11:33] VITALS: BP 133/77; PULSE 80; RESP 17; TEMP 98.1; O2SAT 99
[2024-01-06 14:27] VITALS: BP 107/63; PULSE 64; RESP 16; TEMP 98.2; O2SAT 98
--- NOTE | 2024-01-08 13:08 | ECG ---
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
== END 2024-01-06 14:42 | disposition home or self-care (01) | DRG 111 ==
LOC: ER 22:31 → TELE 01-05 03:57 → TELE-WESTW 01-05 22:30
PROVIDERS: ADMIT Nurse Practitioner Family; ATTEND Family Medicine
DX: H81.10 Benign paroxysmal vertigo, unspecified ear (principal); E86.0 Dehydration; F41.9 Anxiety disorder, unspecified; R73.09 Other abnormal glucose; H53.8 Other visual disturbances
CPT/HCPCS: 36415; 70450; 71046; 80048; 80053; 80307; 81001; 82962; 83036; 84484; 84702; 85025; G0378